=== PATIENT | female | born 1945 ===

== ENCOUNTER 2017-02-11 11:21 | Emergency (ER) | payer MEDICARE ==
[2017-02-11 11:32] VITALS: BP 149/79; PULSE 114; RESP 19; TEMP 97.8; O2SAT 98
--- NOTE | 2017-02-11 13:38 | US ---
PROCEDURE: Right lower extremity venous duplex Doppler. HISTORY: Pain in thigh and swelling COMPARISON: None available. TECHNIQUE: Common femoral, superficial femoral, popliteal and posterior tibial veins were evaluated. Flow was assessed with color Doppler, compressibility, assessment of phasic flow and augmentation response. FINDINGS: COMMON FEMORAL VEIN: Normal flow, compressibility and augmentation response. SUPERFICIAL FEMORAL VEIN: Normal flow, compressibility and augmentation response. POPLITEAL VEIN: Normal flow, compressibility and augmentation response. POSTERIOR TIBIAL VEIN: Normal flow, compressibility and augmentation response. OTHER FINDINGS: None. IMPRESSION: No evidence of deep venous thrombosis in the right lower extremity.
--- NOTE | 2017-02-11 14:07 | ED PDOC ---
Lower Extremity Pain/Injury Time Seen by Provider: 02/11/17 11:34 Chief Complaint (Nursing): Lower Extremity Problem/Injury Chief Complaint (Provider): Lower extremity problem History Per: Patient History/Exam Limitations: no limitations Onset/Duration Of Symptoms: Days (4) Current Symptoms Are (Timing): Still Present Additional Complaint(s): Eneida Lomas is a 71 year old female, with a past medical history of hypertension , who presents to the emergency department complaining of leg pain on right thigh onset 4 days ago. Patient denies any injuries and states the pain does not radiate. Patient also reports feeling little bit hot and flushed. She states she had hot flashes in her face prior to arrival but are now resolved. She is traveling to [facility] tomorrow and wants to be checked out. Patient denies any chest pain, shortness of breath, leg swelling, dizziness, or palpitations. PMD: Eri Colon Past Medical History Reviewed: Historical Data, Nursing Documentation, Vital Signs Vital Signs: Last Vital Signs Temp 97.8 F 02/11/17 11:30 Pulse 114 H 02/11/17 11:30 Resp 19 02/11/17 11:30 BP 149/79 02/11/17 11:30 Pulse Ox 98 02/11/17 11:30 - Medical History PMH: Hyperlipidemia - Family History Family History: States: Unknown Family Hx - Social History Current smoker - smoking cessation education provided: No Alcohol: None Drugs: Denies - Allergies Allergies/Adverse Reactions: Allergies Allergy/AdvReac Type Severity Reaction Status Date / Time No Known Allergies Allergy Verified 02/11/17 11:29 Review of Systems ROS Statement: Except As Marked, All Systems Reviewed And Found Negative Cardiovascular: Negative for: Chest Pain, Palpitations Respiratory: Negative for: Shortness of Breath Musculoskeletal: Positive for: Leg Pain (on right thigh). Negative for: Other ( leg swelling) Neurological: Negative for: Dizziness Physical Exam - Reviewed Nursing Documentation Reviewed: Yes Vital Signs Reviewed: Yes - Physical Exam Appears: Positive for: Well, Non-toxic, No Acute Distress Head Exam: Positive for: ATRAUMATIC, NORMAL INSPECTION, NORMOCEPHALIC Skin: Positive for: Normal Color, Warm, Dry Eye Exam: Positive for: EOMI, Normal appearance, PERRL Neck: Positive for: Normal, Painless ROM, Supple Cardiovascular/Chest: Positive for: Regular Rate, Rhythm. Negative for: Murmur Respiratory: Positive for: Normal Breath Sounds. Negative for: Respiratory Distress Gastrointestinal/Abdominal: Positive for: Normal Exam, Bowel Sounds, Soft. Negative for: Tenderness, Guarding, Rebound Back: Positive for: Normal Inspection. Negative for: Vertebral Tenderness Extremity: Positive for: Normal ROM. Negative for: Pedal Edema, Deformity, Swelling Neurologic/Psych: Positive for: Alert, Oriented - ECG O2 Sat by Pulse Oximetry: 98 (RA) Pulse Ox Interpretation: Normal Medical Decision Making Medical Decision Making: Initial Impression: leg pain. Differential includes: musculoskeletal pain, Rule out: DVT Initial Plan: --EKG -Duplex RLL --reevaluation Dupplex Right lower leg vein: no acute findings Scribe Attestation: Documented by Bipin Bates, acting as a scribe for Yeison Garcia MD Provider Scribe Attestation: All medical record entries made by the Scribe were at my direction and personally dictated by me. I have reviewed the chart and agree that the record accurately reflects my personal performance of the history, physical exam, medical decision making, and the department course for this patient. I have also personally directed, reviewed, and agree with the discharge instructions and disposition. Disposition - Clinical Impression Clinical Impression: Muscle pain - Patient ED Disposition Is Patient to be Admitted: No Doctor Will See Patient In The: Office Counseled Patient/Family Regarding: Studies Performed, Diagnosis, Need For Followup - Disposition Referrals: Eri Colon MD [Primary Care Provider] - Disposition: Routine/Home Disposition Time: 13:50 Condition: GOOD Additional Instructions: TAKE MOTRIN for pain. Follow up with your PCP in 2-3 days. Instructions: Leg Pain (ED) Print Language: IRISH
--- NOTE | 2017-02-12 08:08 | CARD ---
APPROVED REPORT EKG Measurement Heart [id number] <Conclusion> Sinus tachycardia Possible Left atrial enlargement Borderline ECG
== END 2017-02-11 13:57 | disposition home or self-care (01) ==
LOC: SUPCPDRO 11:21 → H.ER 11:21
DX: M79.604 Pain in right leg (principal); E78.5 Hyperlipidemia, unspecified; I10 Essential (primary) hypertension